=== PATIENT | female | born 1990 | race Caucasian/White ===

== ENCOUNTER 2018-04-29 14:00 | Emergency (ER) | payer OTHER ==
[2013-05-18 20:13] VITALS: BMI 19.3
--- NOTE | 2018-04-29 15:18 | OBHP ---
Datetime: 04/29/2018 14:34 IP Adm Impression: Term, intrauterine IP Admit Plan: Observation/Evaluation; Discharge home Admit Comment, IP Provider: with IUP at 39+3 weeks complaints of leakage of fluids reports movements, some mild contractions, loss of mucus plug with some fluids, some spottin g over the past few days OB: primigravida BOBBIN DISKER: LMP mid Jul, normal paps, denies STIs PMH: reports asthma, last exacerbation over 1 year ago denies surgical histroy FAMHX: mother with HTN NKDA no smoking drinking or drug use in the patient taking prenatals during plan: DC home follow up with private phsyician on Tuesday labor precautions discussed Pelvic Type - PN: Adequate Extremities - PN: Not Done Abdomen - PN: Normal Back - PN: Not Done Breast - PN: Not Done Lungs - PN: Normal Heart - PN: Normal Thyroid - PN: Not Done Neurologic - PN: Not Done HEENT - PN: Normal General - PN: Normal FHR - Baseline A Provider: 140 Membranes, Provider: Intact Pool Provider: Negative Nitrazine Provider: Negative EGA AdmitDate IP: 39.3 Vital Signs Provider: Reviewed; Within Normal Limits IP Chief Complaint: Suspected ruptured membranes NICHD Variability Prov Fetus A: Moderate 6-25bpm NICHD Accel Fetus A IP Provider: 15X15 FHR Category Provider Fetus A: Category I NICHD Decel Fetus A IP Provider: None Dilatation, Provider: FT Effacement, Provider: 50 Station, Provider: -2 Genitourinary Exam: Not Done DTRs - PN: Not Done
[2018-04-29 19:31] VITALS: BP 134/84; PULSE 88; RESP 18; TEMP 98.6; O2SAT 99
== END 2018-04-29 15:30 | disposition home or self-care (01) ==
LOC: C.EROB 14:00
DX: O42.92 Full-term premature rupture of membranes, unspecified as to length of time between rupture and onset of labor (principal); Z3A.39 39 weeks gestation of pregnancy

== ENCOUNTER 2018-05-01 15:55 | Inpatient (IN) | payer OTHER ==
[2013-05-18 20:13] VITALS: BMI 19.3
[2018-05-01] MEDS ORDERED: Lactated Ringer's 1,000 ML IV SCH (16:45)
[2018-05-01 17:07] LABS: BASO % 0.4 % (0.0-2.0); EOS % 0.3 % (0.0-4.0); HEMOGLOBIN 13.3 g/dL (11.0-16.0); LYMPH # 1.3 K/uL (1.0-4.3); LYMPH % 11.9 % (20.0-40.0); MEAN CELL VOLUME 88.9 fL (81.0-99.0); MEAN CORPUSCULAR HEMOGLOBIN 29.5 pg (27.0-31.0); MEAN CORPUSCULAR HGB CONC 33.1 g/dL (33.0-37.0); MEAN PLATELET VOLUME 9.6 fL (7.2-11.7); MONO # 0.8 K/uL (0.0-0.8); MONO % 7.8 % (0.0-10.0); NEUT # 8.7 K/uL (1.8-7.0); NEUT % 79.6 % (50.0-75.0); NRBC % 0.1 % (0.0-2.0); RBC 4.5 Mil/uL (3.80-5.20); RED CELL DISTRIBUTION WIDTH 14.1 % (11.5-14.5); WHITE BLOOD COUNT 10.9 K/uL (4.8-10.8)
[2018-05-01 17:21] LABS: BLOOD UREA NITROGEN 18 mg/dL (7-17); CALCIUM 9.6 mg/dl (8.6-10.4); GFR NON-AFRICAN AMERICAN > 60; SQUAMOUS EPITHIAL 9 /hpf (0-5); URINE BACTERIA RARE (<OCC); URINE BILIRUBIN NEGATIVE (NEGATIVE); URINE BLOOD 1+ (NEGATIVE); URINE CLARITY Hazy (Clear); URINE COLOR Yellow (YELLOW); URINE GLUCOSE (UA) NORMAL (Normal); URINE LEUKOCYTE ESTERASE 3+ Leu/uL (Negative); URINE PROTEIN NEGATIVE (NEGATIVE); URINE UROBILINOGEN NORMAL mg/dL (0.2-1.0)
[2018-05-01] MEDS ORDERED: Bupivacaine HCl/FentaNYL Cit 100 ML EPI ONE (17:22)
[2018-05-01 17:24] LABS: ALB/GLOB RATIO 1.3 (1.0-2.1); ALBUMIN 4.4 g/dL (3.5-5.0); ALT/SGPT 26 U/L (9-52); AST/SGOT 50 U/L (14-36)
[2018-05-01 17:51] LABS: HEPATITIS B SURFACE AG Negative (NEGATIVE)
--- NOTE | 2018-05-01 18:11 | OBHP ---
Datetime: 05/01/2018 17:54 IP Adm Impression: Term, intrauterine ; Active labor; Intact Membranes IP Admit Plan: Admit to unit; Initiate labor protocol Admit Comment, IP Provider: 27 YO female G1 with an IUP at 39.5 weeks and present with complaint of UC's Q 4-5 mins without LOF or VB. Admits to adequate FM PMHx Asthma controlled and no meds for a year PSHx Negative Allergies: Iodine and all fish Meds PNV and prn Albuterol Social Hx Negative x 3 Assessment/Plan Primigravida with Term Admitted for Vaginal Delivery Active Labor Intact Membranes GBS Negative Rh Negative and had Rhogam at 28 weeks Labs and meds ordered Dr. Real aware Pelvic Type - PN: Adequate Extremities - PN: Normal Abdomen - PN: Normal Back - PN: Normal Breast - PN: Not Done Lungs - PN: Normal Heart - PN: Normal Thyroid - PN: Normal Neurologic - PN: Normal HEENT - PN: Normal General - PN: Normal Presentation-Admit: Vertex FHR - Baseline A Provider: 130 Membranes, Provider: Intact Contraction Comments Provider: 3-4 Gestation - Est Wks by US: 39.5 IP Hx Assessment: RECORDS REVIEWED EGA AdmitDate IP: 39.5 Vital Signs Provider: Reviewed; Within Normal Limits IP Chief Complaint: Uterine contractions NICHD Variability Prov Fetus A: Moderate 6-25bpm NICHD Accel Fetus A IP Provider: 10X10 FHR Category Provider Fetus A: Category I NICHD Decel Fetus A IP Provider: Variable Dilatation, Provider: 6 Effacement, Provider: 100 Station, Provider: 0 Genitourinary Exam: Normal DTRs - PN: Normal
--- NOTE | 2018-05-01 18:28 | OBADHP ---
Datetime: 05/01/2018 17:54 Admit Comment, IP Provider: 27 YO female G1 with an IUP at 39.5 weeks and present with complaint of UC's Q 4-5 mins without LOF or VB. Admits to adequate FM PMHx Asthma controlled and no meds for a year PSHx Negative Allergies: Iodine and all fish Meds PNV and prn Albuterol Social Hx Negative x 3 Assessment/Plan Primigravida with Term Admitted for Vaginal Delivery Active Labor Intact Membranes GBS Negative Rh Negative and had Rhogam at 28 weeks Labs and meds ordered Dr. Real aware Pelvic Type - PN: Adequate Extremities - PN: Normal Abdomen - PN: Normal Back - PN: Normal Breast - PN: Not Done Lungs - PN: Normal Heart - PN: Normal Thyroid - PN: Normal Neurologic - PN: Normal HEENT - PN: Normal General - PN: Normal Presentation-Admit: Vertex FHR - Baseline A Provider: 130 Membranes, Provider: Intact Contraction Comments Provider: 3-4 Gestation - Est Wks by US: 39.5 IP Hx Assessment: RECORDS REVIEWED Vital Signs Provider: Reviewed; Within Normal Limits IP Chief Complaint: Uterine contractions NICHD Variability Prov Fetus A: Moderate 6-25bpm NICHD Accel Fetus A IP Provider: 10X10 FHR Category Provider Fetus A: Category I NICHD Decel Fetus A IP Provider: Variable Dilatation, Provider: 6 Effacement, Provider: 100 Station, Provider: 0 Genitourinary Exam: Normal DTRs - PN: Normal EGA AdmitDate IP: 39.5 IP Adm Impression: Term, intrauterine ; Active labor; Intact Membranes IP Admit Plan: Admit to unit; Initiate labor protocol Datetime: 04/29/2018 14:34 Pool Provider: Negative Nitrazine Provider: Negative
--- NOTE | 2018-05-01 19:17 | OBPN ---
Datetime: 05/01/2018 19:02 IP Progress Impression: Normal progression of labor IP Informed Consent Obtain: Vaginal Delivery IP Procedures: Artificial ROM; Sterile Vag Exam IP Progress Plan: Continue present management Membranes, Provider: Ruptured Contraction Comments Provider: Q 2-3 FHR - Baseline A Provider: 120 Gestation - Est Wks by US: 39.5 Presentation-Admit: Vertex IP Progress Note Comment: Patient is stable and progressing very well FHT's reactive and reassuring Epidural working well Dilatation complete/+1 station Membrane ruptured with scanty fluid, per Dr. Real request Anticipation for vaginal delivery Vital Signs Provider: Reviewed; Within Normal Limits NICHD Accel Fetus A IP Provider: 10X10 FHR Category Provider Fetus A: Category I NICHD Variability Prov Fetus A: Moderate 6-25bpm Dilatation, Provider: 10 Effacement, Provider: 100 Station, Provider: 1 NICHD Decel Fetus A IP Provider: None Datetime: 04/29/2018 14:34 Pool Provider: Negative Nitrazine Provider: Negative
[2018-05-01] MEDS ORDERED: Lidocaine Hydrochloride 0 ML INJ ONE (20:13)
[2018-05-01] MEDS ORDERED: Oxycodone/Acetaminophen 5/325 mg Tab PO PRN ×2 (20:46)
[2018-05-01] MEDS ORDERED: ceFAZolin IV 1 gm in Dextrose 1 GM/50 ML BAG IVPB ONE (20:49)
--- NOTE | 2018-05-01 21:15 | OBDS ---
DELIVERY PERSONNEL Delivery Doctor: Paulette Real MD Bowling Ball Engraver: Janae Cartagena RN Anesthesiologist: Dr. Posadas MATERNAL INFORMATION Delivery Anesthesia: Epidural Medications in Delivery: pitocin 20 units Placenta Cultured: No Maternal Complications: None Provider Comments: pt was fully dilated and pushign. verbalc conent sgiven for right mediolateral ep isotmy, atruamt, cponten deilveyr of head, tight nuchal cord x 1 loosed. atriuatmic, spoetnau edlieve r of anterior follwod by poseiroe shoulder follwed by dliveyr of body. both oral and nasal passages t eh baby were bulb sutined, ubmicls cord calmpd and cut. baby hadned to mother on abdomen with rn assi ant. cord blood colelcted and sent x 2. Spoetnan deivery of inatct plae=centa with membrnes. funuds f irm, good hemostasis. right mediolater epistiom reparied with 2-0 adn 3-0 chormoc, good hemoa stais, no cmpicaton live femlase ifnat apgars 9,9 ebl 400ml no cmpicaiotns LABOR SUMMARY EDC: 05/03/2018 00:00 No. Babies in Womb: 1 Attempted: No Labor Anesthesia: Epidural LABOR INFORMATION Complete Dilatation: 05/01/2018 18:52 Oxytocin: N/A Group B Beta Strep: Negative Steroids Given: None MEMBRANES Membranes Rupture Method: Artificial Rupture of Membranes: 05/01/2018 18:54 Length of Rupture (hrs): 1.27 Amniotic Fluid Color: Clear Amniotic Fluid Amount: Scant Amniotic Fluid Odor: Normal STAGES OF LABOR Stage 2 hrs: 1 Stage 2 min: 18 Stage 3 hrs: 0 Stage 3 min: 14 BABY A INFORMATION Delivery Date/Time: 05/01/2018 20:10 Method of Delivery: Vaginal Born in Route : No : N/A Forceps: N/A Vacuum Extraction: N/A Shoulder Dystocia : No SHOULDER DYSTOCIA BABY A Infant Delivery Date/Time: 05/01/2018 20:10 PRESENTATION/POSITION BABY A Presentation: Cephalic Cephalic Presentation: Vertex Vertex Position: Right Occipital Anterior Breech Presentation: N/A PLACENTA INFORMATION BABY A Placenta Delivery Time : 05/01/2018 20:24 Placenta Method of Delivery: Spontaneous Placenta Status: Delivered SCORES BABY A Heart Rate 1 min: >100 bpm Resp Effort 1 min: Good Cry Reflex Irritability 1 min: Cough or Sneeze or Pulls Away Muscle Tone 1 min: Active Motion Color 1 min: Body [place], Extremities Blue SCORE 1 MIN: 9 Heart Rate 5 min: >100 bpm Resp Effort 5 min: Good Cry Reflex Irritability 5 min: Cough or Sneeze or Pulls Away Muscle Tone 5 min: Active Motion Color 5 min: Body [place], Extremities Blue SCORE 5 MIN: 9 INFORMATION BABY A Gestational Age at Delivery: 39.5 Gestational Status: Term Outcome : Liveborn Infant Condition : Stable Sex: Female IDENTIFICATION/MEDS BABY A ID Band Number: [id number] ID Band Location: Left Leg; Left Arm Sensor Applied: Yes Sensor Number: [id number] Sensor Location : Cord Clamp Vitamin K Given : Aquamephyton 1 mg IM Erythromycin Given: Given Both Eyes WEIGHT/LENGTH BABY A Infant Birthweight (gms): 2360 Infant Weight (lb): 5 Weight (oz): 3 Length Inches: 18.00 Length cms: 45.7 CORD INFORMATION BABY A No. Cord Vessels: 3 Nuchal Cord : Around Neck x1, Loose Cord Blood Taken: Yes Suction: None ASSESSMENT BABY A Complications: None Physical Findings at Delivery: Within Normal Limits Infant Respirations: Appears Normal Family Law Legal Assistant/ALS Called : No Transferred To: Remains with Mother
[2018-05-01 22:39] VITALS: RESP 18
[2018-05-02] MEDS ORDERED: Benzocaine/Menthol 20%-0.5% Topical Spray (60 ml) TOP SCH
[2018-05-02 07:16] LABS: BASO % 0.1 % (0.0-2.0); EOS % 0.1 % (0.0-4.0); HEMOGLOBIN 10.7 g/dL (11.0-16.0); LYMPH # 0.9 K/uL (1.0-4.3); LYMPH % 6.2 % (20.0-40.0); MEAN CELL VOLUME 89.4 fL (81.0-99.0); MEAN CORPUSCULAR HEMOGLOBIN 30.3 pg (27.0-31.0); MEAN CORPUSCULAR HGB CONC 33.9 g/dL (33.0-37.0); MEAN PLATELET VOLUME 9.1 fL (7.2-11.7); MONO # 1.1 K/uL (0.0-0.8); MONO % 8.1 % (0.0-10.0); NEUT # 11.9 K/uL (1.8-7.0); NEUT % 85.5 % (50.0-75.0); PLATELET COUNT 161 K/uL (130-400); RBC 3.53 Mil/uL (3.80-5.20); RED CELL DISTRIBUTION WIDTH 14.2 % (11.5-14.5); WHITE BLOOD COUNT 13.9 K/uL (4.8-10.8)
[2018-05-02] MEDS: Multiple Vitamins Tab PO SCH (09:18)
[2018-05-02 10:12] LABS: BANDS 5 % (0-2); LYMPHOCYTE 6 % (20-40); MONOCYTE 8 % (0-10); NEUTROPHIL 81 % (50-75); PLATELET ESTIMATE NORMAL (NORMAL); TOTAL CELLS COUNTED 100
[2018-05-02 14:14] LABS: BASO % 0.2 % (0.0-2.0); EOS % 0.2 % (0.0-4.0); HEMOGLOBIN 10.3 g/dL (11.0-16.0); LYMPH # 1.2 K/uL (1.0-4.3); LYMPH % 9.8 % (20.0-40.0); MEAN CELL VOLUME 90.4 fL (81.0-99.0); MEAN CORPUSCULAR HEMOGLOBIN 30.2 pg (27.0-31.0); MEAN CORPUSCULAR HGB CONC 33.4 g/dL (33.0-37.0); MEAN PLATELET VOLUME 9.5 fL (7.2-11.7); MONO # 0.9 K/uL (0.0-0.8); MONO % 7.2 % (0.0-10.0); NEUT % 82.6 % (50.0-75.0); PLATELET COUNT 163 K/uL (130-400); RED CELL DISTRIBUTION WIDTH 14.4 % (11.5-14.5)
[2018-05-02 15:04] LABS: BANDS 1 % (0-2); LYMPHOCYTE 6 % (20-40); MONOCYTE 4 % (0-10); NEUTROPHIL 89 % (50-75); PLATELET ESTIMATE NORMAL (NORMAL); TOTAL CELLS COUNTED 100
[2018-05-03] MEDS ORDERED: Influenza Vaccine 60 MCG/0.5 ML SYR (3 yr & up) IM ONE (09:00)
[2018-05-03] MEDS: Multiple Vitamins Tab PO SCH (09:44)
[2018-05-03 11:15] VITALS: BP 117/68; PULSE 80; TEMP 97.5
[2018-05-03 20:00] VITALS: O2SAT 99
== END 2018-05-03 13:10 | disposition home or self-care (01) | DRG 807 ==
LOC: C.EROB 15:55 → C.4D 16:57 → C.4M 22:35
PROVIDERS: ADMIT Obstetrics & Gynecology; ATTEND Obstetrics & Gynecology
PROC: 10E0XZZ Delivery of Products of Conception, External Approach (ICD-10-PCS; principal; 2018-05-01)
PROC: 0W8NXZZ Division of Female Perineum, External Approach (ICD-10-PCS; 2018-05-01)
PROC: 10907ZC Drainage of Amniotic Fluid, Therapeutic from Products of Conception, Via Natural or Artificial Opening (ICD-10-PCS; 2018-05-01)
DX: O69.1XX0 Labor and delivery complicated by cord around neck, with compression, not applicable or unspecified (principal); O99.52 Diseases of the respiratory system complicating childbirth; J45.909 Unspecified asthma, uncomplicated; Z3A.39 39 weeks gestation of pregnancy; Z37.0 Single live birth